=== PATIENT | male | born 1995 | race African-American/Black ===

== ENCOUNTER 2019-05-29 15:35 | Emergency (ER) | payer OTHER ==
[~2019-05-29] VITALS: Ht 185.4 cm; Wt 90.7 kg
[~2019-05-29 15:35] MED LIST: IBUPROFEN 600600 M1 PO; NOHOMEMEDICATIONS; NORCO 5-325 TA1 EACH PO
[2019-05-29 16:46] LABS: ABSOLUTE EOSINOPHILS 0.3 thou/uL (0.0-0.7); ABSOLUTE LYMPHOCYTES 2.9 thou/uL (0.8-5.3); ABSOLUTE MONOCYTES 0.7 thou/uL (0.0-1.2); ABSOLUTE NEUTROPHILS 5.2 thou/uL (1.6-8.1); BASOPHILS 0.5 %; EOSINOPHILS 3.5 %; HEMATOCRIT 46.6 % (42.0-52.0); HEMOGLOBIN 15.7 gm/dL (14.0-18.0); LYMPHOCYTES 31.8 %; MCH 27.3 pg (26.0-34.0); MCHC 33.7 g/dL (28.0-37.0); MCV 81.2 fL (80.0-100.0); MONOCYTES 7.6 %; MPV 8.6 fl. (7.2-11.1); NUCLEATED RBCS 0 /100WBC; PLATELET COUNT* 236 thou/uL (150-400); POLYS 56.6 %; RBC 5.74 mil/uL (4.50-6.00); RDW-CV 13.1 % (10.5-14.5); WBC 9.1 thou/uL (4.0-11.0)
[2019-05-29 16:52] LABS: ANION GAP 7 mmol/L (7-16); BUN 10 mg/dL (7-18); CHLORIDE 103 mmol/L (98-107); CO2 30 mmol/L (21-32); CREATININE 0.9 mg/dL (0.6-1.3); GLUCOSE 92 mg/dL (70-99); POTASSIUM 3.7 mmol/L (3.5-5.1); SODIUM 140 mmol/L (136-145)
[2019-05-29 17:01] LABS: ALBUMIN 3.9 g/dL (3.4-5.0); ALKALINE PHOSPHATASE 110 U/L (46-116); LIPASE 78 U/L (73-393); SGOT 33 U/L (15-37); SGPT 55 U/L (30-65); TOTAL BILIRUBIN 0.6 mg/dL (<0.1-1.0); TOTAL PROTEIN 7.5 g/dL (6.4-8.2); TROPONIN-I LEVEL <0.06 ng/mL (<0.06)
[2019-05-29] MEDS ORDERED: NAPROSYN500 MG PO (17:38)
[2019-05-29] MEDS ORDERED: MEDROLDOSEPACK PO (17:38)
[2019-05-29 18:55] VITALS: BP 118/80
--- NOTE | 2019-05-31 16:53 | EKG ---
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1995 Requested By: Lindsey Mckoy Order Number: [id number] MD: Francisco Javier Power Measurements Intervals [place] Rate: 74 P: 68 OR: 161 QRS: 61 QRSD: 81 T: 33 QT: 356 QTc: 395 Interpretive Statements Sinus rhythm ST elev, probable normal early repol pattern No previous ECG available for comparison Electronically Signed On 05-31-2019 16:53:17 CDT by Francisco Javier Power [email or web address] <ELECTRONICALLY SIGNED> By: Francisco Javier Power MD, [facility] 05/31/19 1653 1543 1543 Francisco Javier Power MD, FACC /EPI
--- NOTE | 2019-05-31 16:56 | EKG ---
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1995 Requested By: Nav Alcaraz Order Number: [id number] MD: Francisco Javier Power Measurements Intervals [place] Rate: 64 P: 30 IN: 162 QRS: 72 QRSD: 80 T: 42 QT: 380 QTc: 392 Interpretive Statements Sinus rhythm Diffuse ST elevation, consider pericarditis No previous ECG available for comparison Electronically Signed On 05-31-2019 16:56:28 CDT by Francisco Javier Power [email or web address] <ELECTRONICALLY SIGNED> By: Francisco Javier Power MD, [facility] 05/31/19 1656 1646 1646 Francisco Javier Power MD, FACC /EPI
== END 2019-05-29 18:55 | disposition home or self-care (01) ==
LOC: M.ERS 15:35
PROVIDERS: Personal Emergency Response Attendant
DX: I31.9 Disease of pericardium, unspecified (principal)